=== PATIENT | female | born 1955 | race Caucasian/White ===

== ENCOUNTER → 2016-11-09 | Outpatient (CLI) | payer OTHER ==
[~2016-11-09] VITALS: Ht 161.3 cm; Wt 75.0 kg
[~2016-11-09] MED LIST: FORTEO20 MICROGR SC; LASIX20 MG PO; LO-DOSE ASPIRIN81 M2 PO; NIFEDICAL XL60 MG PO; PRAVACHOL40 M1 PO; VITAMIN D22000 UNIT PO
== END | disposition home or self-care (01) ==
LOC: AMB 10:17
PROC: 0DJD8ZZ Inspection of Lower Intestinal Tract, Via Natural or Artificial Opening Endoscopic (ICD-10-PCS; principal; 2016-11-09)
DX: Z12.11 Encounter for screening for malignant neoplasm of colon (principal); Z80.0 Family history of malignant neoplasm of digestive organs; E78.5 Hyperlipidemia, unspecified; M81.0 Age-related osteoporosis without current pathological fracture; E03.9 Hypothyroidism, unspecified; I10 Essential (primary) hypertension; Z79.82 Long term (current) use of aspirin
CPT/HCPCS: 93005; J2250; J3010